=== PATIENT | female | born 1970 | race Caucasian/White ===

== ENCOUNTER 2023-12-19 10:46 | Emergency (ER) | payer OTHER ==
[~2023-12-19] VITALS: Ht 162.6 cm; Wt 106.1 kg
[2023-12-19] MEDS ORDERED: Ketorolac Tromethamine 30mg Vial IM ONE (11:30)
[2023-12-19] MEDS ORDERED: Diazepam 5 MG Tab PO ONE (11:30)
[2023-12-19] MEDS ORDERED: OxyCODONE 5 mg/Acetamin 325 mg TABLET PO ONE (12:55)
[2023-12-19] MEDS ORDERED: Norco 5-325 Ta1 EACH PO (12:58)
[2023-12-19] MEDS ORDERED: CYCL10 PO (12:58)
== END 2023-12-19 13:20 | disposition home or self-care (01) ==
LOC: ER 10:46
DX: M54.50 Low back pain, unspecified (principal); W18.30XA Fall on same level, unspecified, initial encounter
CPT/HCPCS: 72100; 96372; 99283-25; A9270; J1885